=== PATIENT | male | born 1945 | race Caucasian/White ===

== ENCOUNTER → 2018-08-31 | Outpatient (CLI) | payer OTHER ==
[~2018-08-31] VITALS: Ht 180.3 cm; Wt 93.0 kg
[~2018-08-31] MED LIST: CARVEDILOL3.125 MG PO; CHANTIX1 MG PO; CHONDROITIN SU250 MG PO; CO Q-10100 MG PO; COZAAR 25 MG TA25 M1 PO; CRESTOR40 MG PO; ELIQUIS5 MG PO; FISH OIL 1,2001 EAC3 PO; GLUCOSAMINE H1500 MG PO; LEVAQUIN 500 M500 M2 PO; NORVASC10 MG PO; VITAMIN B COMP1 EACH PO
--- NOTE | ~2018-08-31 | HPC ---
[facility] [address] [place] [address] PAIN MANAGEMENT CONSULTATION Name: ARGENTINA GOODRICH Room #: REG [facility]#: [id number] Admission: 08/31/18 Attend Phys: Elio Vazquez MD Discharge: Date of : 45 Report #: [id number] THIS REPORT FOR: //name// CC: Dr. Guru LANDEROS Joanna [place] Physician staff Elio Vazquez DATE OF SERVICE: 08/31/2018 CHIEF COMPLAINT: Low back pain with tingling and numbness into the left leg. The patient is a pleasant 72-year-old gentleman who complains of tingling and numbness in his legs, which is quite tolerable, but his pain is primarily lumbosacral in nature. He describes it as a periodic, aching, stabbing sensation. He is generally quite active even playing golf this summer, but he has been unable to do much of this recently because the pain in his back has become more troublesome. He can get around about 13 holes and the back starts to bother him enough that he has to stop. He describes it as an aching, stabbing sensation. He has a fairly complex medical history, which came out sort of slowly and has related to his visit. He has a history of hypertension and heart disease. He had open heart surgery in 2004. He had recurrent small-bowel obstruction, treated by nasogastric decompression in 2014, one time while he was in [place] in [place]. In 2015, it reoccurred. He was seen in [facility] and then sent to [facility] where it was identified that he had sustained what sounds like a hiatal hernia and his stomach was into his chest cavity. He had it repaired and this has been improved. In 2014, he underwent a repair of an aortic aneurysm at [facility]. I am not sure of all the details, but apparently there were some type of complication which he could not adequately explain to me. Following that, he was told that he had a chronic seminal infection and will be required to remain on Levaquin every other day for the rest of his life. He has an anterolisthesis of L4 on L5, which is a likely cause of his low back pain. He has spondylosis also at L5-S1. MEDICATIONS: Carvedilol, Eliquis, Crestor, amlodipine, losartan, glucosamine chondroitin, fish oil, Levaquin. ALLERGIES: None. SOCIAL HISTORY: He is retired. He denies use of tobacco, drinks alcohol twice [facility] [address] [place] [address] PAIN MANAGEMENT CONSULTATION Name: ARGENTINA GOODRICH Room #: REG [facility]#: [id number] Admission: 08/31/18 Attend Phys: Elio Vazquez MD Discharge: Date of : 45 Report #: [id number] a month. REVIEW OF SYSTEMS: Good general health, fatigue and weakness, blurred vision, hearing loss, dyspnea on exertion, nocturia, numbness and tingling in legs. PHYSICAL EXAMINATION: GENERAL: This is a pleasant, tall gentleman. Blood pressure 131/51, heart rate 60. He is able to move from sitting to standing position independently. He walks with a very brisk and very confident gait. His chest is clear. His cardiac rhythm is regular. His abdomen is soft. He has multiple scars in his abdomen from previous surgeries. No organomegaly. Examination of the spine reveals tenderness across the lumbosacral segment with good range of motion. There is increasing pain with back extension. Tenderness across the lumbar facet joints. Sacroiliac joints are nontender. Examination of the hips is normal. Straight leg raising was amazing for a 72-year-old gentleman. He can go almost to 90 degrees in a supine position. X-rays, bilateral spondylolysis at L4 is seen with a grade 1 anterolisthesis. There is neural foraminal narrowing, worse on the left. No spinal stenosis. There is also a grade 1 anterolisthesis of L5 on S1. There is spondylosis and facet arthropathy noted at both L4-L5, L5-S1 and also at L3-L4 which is moderate with some disk osteophyte complex changes as well. IMPRESSION: 1. Low back pain with spondylitic changes, likely due to facet arthropathy. 2. Hypertension. 3. Coronary artery disease, status post bypass surgery. 4. History of multiple small bowel obstructions. RECOMMENDATION: Although, he is on Eliquis, we can safely perform facet injections today. I believe he has enough axial back pain related to his facet arthropathy. This is a reasonable treatment option. We would like to avoid putting him on stronger pain medications at his request at this time and that would be an additional option. PROCEDURE: After informed consent, he was taken to the fluoroscopic suite for treatment. He was placed prone, skin prepped with ChloraPrep. Skin was anesthetized and I first began on the left. A 25-gauge needle was gently advanced into the recess at the base of the L3-L4, L4-L5, and L5-S1 facet joints. After negative aspiration, each joint received a milliliter of 0.5% bupivacaine and 15 mg triamcinolone. Needle was removed. C-arm was moved to the right and the procedure was repeated. There were no complications. PROCEDURE PERFORMED: L3-L4, L4-L5 and L5-S1 facet injections bilaterally with triamcinolone. [facility] [address] [address] PAIN MANAGEMENT CONSULTATION Name: ARGENTINA GOODRICH Room #: REG [facility]#: [id number] Admission: 08/31/18 Attend Phys: Elio Vazquez MD Discharge: Date of : 45 Report #: [id number] Followup visit planned in 1 month for reevaluation. By: [id number] Elio Vazquez MD /nt
[2018-08-31 12:48] VITALS: BP 131/51
== END | disposition home or self-care (01) ==
LOC: PAIN 10:05
DX: M47.816 Spondylosis without myelopathy or radiculopathy, lumbar region (principal); G89.29 Other chronic pain; I10 Essential (primary) hypertension; I25.10 Atherosclerotic heart disease of native coronary artery without angina pectoris; Z95.1 Presence of aortocoronary bypass graft; Z87.19 Personal history of other diseases of the digestive system; Z79.899 Other long term (current) drug therapy; Z79.01 Long term (current) use of anticoagulants; Z98.890 Other specified postprocedural states